=== PATIENT | female | born 1965 | race American Indian/Alaskan Native ===

== ENCOUNTER 2018-11-29 08:37 | Day surgery (SDC) | payer BC ==
[2018-11-27 13:24] VITALS: BMI 35.2
[2018-11-29] MEDS ORDERED: Sodium Chloride 0.9% 1,000 ML IV SCH (09:00)
[2018-11-29] MEDS ORDERED: Propofol 10 mg/ml Inj (20 ML) ONE ×2 (10:08→10:22)
[2018-11-29 11:19] VITALS: O2SAT 100
[2018-11-29 13:05] VITALS: BP 131/87; PULSE 75; RESP 18; TEMP 97.8
== END 2018-11-29 12:15 | disposition home or self-care (01) ==
LOC: ENDO 08:37
PROVIDERS: ATTEND Internal Medicine Gastroenterology
DX: Z12.11 Encounter for screening for malignant neoplasm of colon (principal); K64.8 Other hemorrhoids; I10 Essential (primary) hypertension; E66.9 Obesity, unspecified; J45.909 Unspecified asthma, uncomplicated; Z98.84 Bariatric surgery status; Z68.35 Body mass index [BMI] 35.0-35.9, adult
CPT/HCPCS: 45378; J2001; J2704; J7030